=== PATIENT | male | born 1965 | race Caucasian/White ===

== ENCOUNTER 2017-04-25 01:21 | Emergency (ER) | payer SELFPAY ==
--- NOTE | 2017-04-25 01:39 | PDOC ---
History of Present Illness - General History Source: Patient Exam Limitations: No Limitations - History of Present Illness Initial Comments: 04/25/17 01:59 The patient is a 51 year old male with a significant past medical history of HTN , anxiety and panic attacks who presents to the ED with left arm numbness since earlier today. Patient states he went out with his friends torie, had 3 glasses of alcohol and smoked cigarettes. He states he developed a sudden onset of left arm numbness 2 hours ago. Patient reports his left arm is heavy and notes he cant feel his left hand. Patient states he ran out of his blood pressure medication on Wednesday. Denies fever or chills. Denies chest pain or shortness of breath. Denies any other symptoms. <Keke Gilmore - Last Filed: 04/25/17 03:06> <Zakiya Mejia - Last Filed: 04/25/17 05:05> - General Stated Complaint: NUMBNESS LFT ARM/HAND Time Seen by Provider: 04/25/17 01:39 Past History <Keke Gilmore - Last Filed: 04/25/17 03:06> - Past Medical History GI Disorders: Yes (GASTRIC ULCER) HTN: Yes - Immunization History Immunization Up to Date: Yes - Suicide/Smoking/Psychosocial Hx Smoking History: Current some day smoker Number of Cigarettes Smoked Daily: 2 'Breaking Loose' booklet given: 11/26/13 Hx Alcohol Use: Yes Substance Use Type: Alcohol <Zakiya Mejia - Last Filed: 04/25/17 05:05> - Past Medical History Allergies/Adverse Reactions: Allergies Allergy/AdvReac Type Severity Reaction Status Date / Time No Known Allergies Allergy Verified 04/25/17 01:42 Home Medications: Ambulatory Orders Amlodipine Besylate/Benazepril [Lotrel 5-10 mg Capsule] 1 each PO DAILY Metoprolol Succinate [Toprol XL -] 25 mg PO DAILY #30 tab.sr.24h 11/27/13 Miscellaneous Medical Supply [Glucometer Device] 1 each .ROUTE ASDIR #1 kit Miscellaneous Medical Supply [Glucometer Test Strips #100] 1 each .ROUTE ASDIR # 1 box 11/27/13 Omeprazole Magnesium [Prilosec (OTC)] 20 mg PO DAILY #30 tablet 11/27/13 Metoprolol Succinate [Toprol Xl -] 50 mg PO DAILY #30 tablet 04/25/17 Review of Systems - Review of Systems Able to Perform ROS?: Yes Comments:: 04/25/17 01:59 CONSTITUTIONAL: No reported: Fever, Chills, Diaphoresis, Generalized Weakness, Malaise, Loss of Appetite HEENT: No reported: Rhinorrhea, Nasal Congestion, Throat Pain, Throat Swelling, Difficulty Swallowing, Mouth Swelling, Ear Pain, Eye Pain, Visual Changes CARDIOVASCULAR: No reported: Chest Pain, Syncope, Palpitations, Irregular Heart Rate, Lightheadedness, Peripheral Edema RESPIRATORY: No reported: Cough, Shortness of Breath, SOB with Exertion, Orthopnea, Wheezing , Stridor, Hemoptysis GASTROINTESTINAL: No reported: Abdominal pain, Abdominal Distension, Nausea, Vomiting, Diarrhea, Constipation, Melena, Hematochezia GENITOURINARY: No reported: Dysuria, Frequency, Urgency, Hesitancy, Flank Pain, Genital Pain MUSCULOSKELETAL: No reported: Myalgia, Arthralgia, Joint Swelling, Back pain, Neck Pain SKIN: No reported: Rash, Itching, Pallor HEMEATOLOGIC/IMMUNOLOGIC: No reported: Easy Bleeding, Easy Bruising, Lymphadenopathy, Frequent infections ENDOCRINE: No reported: Unexplained Weight Gain, Unexplained Weight Loss, Heat Intolerance , Cold Intolerance NEUROLOGIC:+ arm numbness No reported: Headache,, Paresthesias, Vertigo, Lightheadedness, Unsteady Gait, Seizure, Mental Status Changes, Incontinence PSYCHIATRIC: No reported: Anxiety, Depression All Other Systems: Reviewed and Negative <Keke Gilmore - Last Filed: 04/25/17 03:06> *Physical Exam - Vital Signs Last Vital Signs Temp Pulse Resp BP Pulse Ox 97.6 F 114 H 20 149/117 97 04/25/17 01:33 04/25/17 01:33 04/25/17 01:33 04/25/17 01:33 04/25/17 01:33 - Physical Exam Comments: 04/25/17 01:59 GENERAL: Well developed, well nourished. Awake and alert. No acute distress. HEENT: Normocephalic, atraumatic. PERRLA, EOMI. No conjunctival pallor. Sclera are non- icteric. Moist mucous membranes. Oropharynx is clear. NECK: Supple. Full ROM. No JVD. Carotid pulses 2+ and symmetric, without bruits. No thyromegaly. No lymphadenopathy. CARDIOVASCULAR: blood pressure of 145/99 bilaterally. Regular rate and rhythm. No murmurs, rubs, or gallops. Distal pulses are 2+ and symmetric. PULMONARY: No evidence of respiratory distress. Lungs clear to auscultation bilaterally. No wheezing, rales or rhonchi. ABDOMINAL: Soft. Non-tender. Non-distended. No rebound or guarding. No organomegaly. Normoactive bowel sounds. MUSCULOSKELETAL Normal range of motion at all joints. No bony deformities or tenderness. No CVA tenderness. EXTREMITIES: No cyanosis. No clubbing. No edema. No calf tenderness. SKIN: Warm and dry. Normal capillary refill. No rashes. No jaundice. NEUROLOGICAL: Alert, awake, appropriate. Cranial nerves 2-12 intact. No deficits to light touch and temperature in face, upper extremities and lower extremities. No motor deficits in the in face, upper extremities and lower extremities. Normoreflexic in the upper and lower extremities. Normal speech. Toes are down- going bilaterally. Gait is normal without ataxia. PSYCHIATRIC: Cooperative. Good eye contact. Appropriate mood and affect. <Keke Gilmore - Last Filed: 04/25/17 03:06> ED Treatment Course - LABORATORY CBC & Chemistry Diagram: 04/25/17 02:00 04/25/17 02:00 - RADIOLOGY Radiograph Interpretation: 04/25/17 03:07 EXAM: CT HEAD without contrast IMPRESSION: No acute pathology. REPORTED BY: Imaging latex ribbon machine operator <Keke Gilmore - Last Filed: 04/25/17 03:06> - LABORATORY CBC & Chemistry Diagram: 04/25/17 02:00 04/25/17 02:00 <Zakiya Mejia - Last Filed: 04/25/17 05:05> Medical Decision Making - Medical Decision Making 04/25/17 03:35 Patient Name: NAOMY CENTENO THIS IS A PRELIMINARY REPORT FROM [facility] DATE OF SERVICE: 2017-04-25 02:46:46 IMAGES: 138 EXAM: CT HEAD without contrast HISTORY:Right arm numbness COMPARISON: None. FINDINGS:The ventricular system is midline and nondilated. The sulcal pattern is normal for the patient's age. There is no bleed, mass, extra-axial fluid collection or mass effect. No skull fracture or skull lesion is identified. There is scattered mild sinus mucosal thickening without sinus fluid levels. Vascular cells are well-aerated bilaterally. IMPRESSION: No acute pathology 04/25/17 05:03 Pt comes with let arm numbness. He states that he ran out of his HTN meds and he has no idea what he takes. He was out smoking/drinking and eating salty food. Pt has a hx of aniety and he is anxious at this time. His neuro exam is completely normal at this time. Pt is sober. Labs done. Head CT normal. Pt will be asked to follow with his PMD. I treated him in the ER with toprol XL 50mg and gave him a 1 month supply of the same. <Zakiya Mejia - Last Filed: 04/25/17 05:05> *DC/Admit/Observation/Transfer - Attestations Scribe Attestion: 04/25/17 02:00 Documentation prepared by Keke Gilmore, acting as medical secretary receptionist for Zakiya Mejia MD <Keke Gilmore - Last Filed: 04/25/17 03:06> - Discharge Dispostion Admit: No <Zakiya Mejia - Last Filed: 04/25/17 05:05> Diagnosis at time of Disposition: Paresthesia, Uncontrolled hypertension, Medication refill - Discharge Dispostion Disposition: HOME Condition at time of disposition: Improved - Prescriptions Prescriptions: Metoprolol Succinate [Toprol Xl -] 50 mg PO DAILY #30 tablet - Patient Instructions Printed Discharge Instructions: High Blood Pressure, DI for Numbness/tingling
[2017-04-25 01:42] VITALS: BMI 31.1
[2017-04-25] MEDS ORDERED: METOPROLOL SUCCINATE 50 MG TAB.SR.24H (FP) PO ONE (01:47)
[2017-04-25] MEDS ORDERED: METOPROLOL SUCCINATE 50 MG TAB.SR.24H (FP) ONE (01:50)
[2017-04-25 02:03] LABS: BASOPHIL 0.6 % (0-2.0); MEAN CELL VOLUME 94.2 fl (80-96); MEAN PLT VOLUME 6.9 fl (7.5-11.1); NEUTROPHILS 56.1 % (42.8-82.8); PLATELET COUNT 202 K/MM3 (134-434); RDW 13.1 % (11.9-15.9); WHITE BLOOD COUNT 6.3 K/mm3 (4.0-10.0)
[2017-04-25 02:32] LABS: INR 1.1 (0.82-1.09); PROTHROMBIN TIME (PATIENT) 12.4 SEC (9.98-11.88)
[2017-04-25 02:58] LABS: ALBUMIN 3.8 g/dl (3.4-5.0); ALK PHOS 88 U/L (45-117); ANION GAP 11 (8-16); BILIRUBIN,TOTAL 0.3 mg/dL (0.2-1.0); CALCIUM 8.5 mg/dL (8.5-10.1); CO2 25 mmol/L (21-32); CPK 173 IU/L (39-308); CREATININE 0.9 mg/dL (0.7-1.3); GLUCOSE,RANDOM 156 mg/dL (74-106); SGOT/AST 76 U/L (15-37); SGPT/ALT 117 U/L (12-78); TOT PROT 7.5 g/dl (6.4-8.2)
[2017-04-25 03:00] LABS: TROPONIN I < 0.02 ng/ml (0.00-0.05)
[2017-04-25 03:49] VITALS: BP 139/89; PULSE 98; TEMP 97.8
--- NOTE | 2017-04-27 07:18 | EKG ---
Test Reason : Blood Pressure : / mmHG Vent. Rate : 110 BPM Atrial Rate : 110 BPM P-R Int : 144 ms QRS Dur : 080 ms QT Int : 348 ms P-R-T Axes : 039 -25 -02 degrees QTc Int : 470 ms SINUS TACHYCARDIA WHEN COMPARED WITH ECG OF 26-NOV-2013 00:33, NO SIGNIFICANT CHANGE WAS FOUND Confirmed by ADDISON MARTIN MD ([id number]) on 04/27/2017 7:17:48 AM Referred By: Confirmed By:ADDISON MARTIN MD
== END 2017-04-25 03:32 | disposition home or self-care (01) ==
LOC: JER 01:21
PROC: 3E033NZ Introduction of Analgesics, Hypnotics, Sedatives into Peripheral Vein, Percutaneous Approach (ICD-10-PCS; principal; 2017-04-25)
DX: R20.2 Paresthesia of skin (principal); I10 Essential (primary) hypertension; F41.9 Anxiety disorder, unspecified; Z76.0 Encounter for issue of repeat prescription
CPT/HCPCS: 36415; 70450-TC; 71020-TC; 80053; 80307; 82550; 82553; 84484; 85025; 85610; 93005; 93010; 99281-25